=== PATIENT | male | born 1985 | race Caucasian/White ===

== ENCOUNTER 2023-07-19 19:59 | Emergency (ER) | payer BC ==
[2023-07-19] MEDS ORDERED: NA CHLORIDE 0.9% 1,000 ML ONE ×2 (20:44→21:19)
[2023-07-19] MEDS ORDERED: ONDANSETRON 4 MG/2 ML VIAL ONE (20:44)
[2023-07-19] MEDS ORDERED: KETOROLAC 30 MG/ML INJ ONE (20:44)
[2023-07-19] MEDS ORDERED: MORPHINE 4 MG/ML SYR ONE (20:44)
[2023-07-19] MEDS ORDERED: ETOMIDATE 20 MG/10 ML VIAL IV ONE (20:44)
[2023-07-19 21:13] LABS: Absolute Lymphocytes (CBC) 1.9 K/uL (0.7-4.9); Hematocrit 46.2 % (39.6-49.0); Lymphocytes % 22.9 % (15.3-44.8); MCV 85.3 fL (80-100); MPV 7.7 fL (7.6-11.3); Platelets 284 thou/uL (152-406); RBC Red Blood Cell Count 5.42 M/uL (4.33-5.43)
--- NOTE | 2023-07-19 22:17 | RAD REPORT ---
EXAM DESCRIPTION: RAD - Wrist Left 3 View - 07/19/2023 10:01 pm CLINICAL HISTORY: DEFORMITY Pain COMPARISON: No comparisons FINDINGS: Lunate dislocation is noted. Scaphoid dislocation is also likely present. Ulnar styloid a vulsion is noted.
--- NOTE | 2023-07-19 22:23 | RAD REPORT ---
EXAM DESCRIPTION: RAD - Forearm Left - 07/19/2023 10:01 pm CLINICAL HISTORY: wrist fracture COMPARISON: No comparisons FINDINGS: Ulnar styloid fracture is present. A lunate dislocation is present. There is also likely s caphoid dislocation. Full carpal bone assessment is limited.
--- NOTE | 2023-07-19 22:23 | RAD REPORT ---
EXAM DESCRIPTION: RAD - Hand Left 2 View - 07/19/2023 10:01 pm CLINICAL HISTORY: fracture Pain and swelling COMPARISON: No comparisons FINDINGS: Ulnar styloid fracture noted. Lunate dislocation is present. Scaphoid also appears disloca irene.
--- NOTE | 2023-07-20 01:12 | EDPHYS ---
Physician Documentation [facility] Name: Noah Durand Age: 37 yrs Sex: Male : 1985 Arrival Date: 07/19/2023 Time: 19:59 Bed 16 Private MD: ED Physician Juno Mao HPI: 07/19 20:03 This 37 yrs old Male presents to ER via Unassigned with complaints of Gen sp4 complaint . 22:11 Patient presents with acute left wrist injury after falling off the ladder while sp4 working on the ladder. Patient has acute deformity left wrist associated with moderate to severe pain and swelling. No additional injury reported. No medical problems reported. . Historical: - Allergies: 20:21 No Known Allergies; bp - Home Meds: 20:21 None [Active]; bp - PMHx: 20:21 None; bp - PSHx: 20:21 None; bp - Immunization history:: Adult Immunizations up to date. - Social history:: Smoking status: Patient denies any tobacco usage or history of. - Family history:: not pertinent. ROS: 22:11 Constitutional: Negative for fever, chills, and weight loss, MS/Extremity: Positive for sp4 left wrist deformity, positive for left wrist injury, positive for left wrist severe pain 22:11 All other systems are negative, Exam: 22:11 Constitutional: This is a well developed, well nourished patient who is awake, alert, sp4 and acutely uncomfortable Head/Face: Normocephalic, atraumatic. Eyes: Pupils equal round and reactive to light, extra-ocular motions intact. Lids and lashes normal. Conjunctiva and sclera are not injected. Cornea within normal limits. Periorbital areas with no swelling, redness, or edema. ENT: Nares patent. No nasal discharge, no septal abnormalities noted. Tympanic membranes are normal and external auditory canals are clear. Oropharynx with no redness, swelling, or masses, exudates, or evidence of obstruction, uvula midline. Mucous membranes moist. Neck: Trachea midline, no thyromegaly or masses palpated, and no cervical lymphadenopathy. Supple, full range of motion without nuchal rigidity, or vertebral point tenderness. Chest/axilla: Normal chest wall appearance and motion. Nontender with no deformity. No lesions are appreciated. Cardiovascular: Regular rate and rhythm with a normal S1 and S2. No gallops, murmurs, or rubs. Normal PMI, no JVD. No pulse deficits. Respiratory: Lungs have equal breath sounds bilaterally, clear to auscultation and percussion. No rales, rhonchi or wheezes noted. No increased work of breathing, no retractions or nasal flaring. Abdomen/GI: Soft, non-tender, with normal bowel sounds. No distension or tympany. No guarding or rebound. No evidence of tenderness throughout. Back: No spinal tenderness. No costovertebral tenderness. Skin: Warm, dry with normal turgor. Normal color with no rashes, no lesions, and no evidence of cellulitis. MS/ Extremity: Pulses equal, no cyanosis. Neurovascular intact. Positive left wrist deformity positive left wrist deviation positive left wrist tenderness positive left wrist swelling, intact peripheral pulse. Otherwise normal musculoskeletal exam Neuro: Awake and alert, GCS 15, oriented to person, place, time, and situation. Cranial nerves II-XII grossly intact. Motor strength 5/5 in all extremities. Sensory grossly intact. Psych: Awake, alert, with orientation to person, place and time. Behavior, mood, and affect are within normal limits 22:11 ECG was reviewed by the Attending Physician. That her EEG is normal sinus rhythm at the sp4 rate of 94, EKG time 2044. Vital Signs: 20:20 BP 138 / 95; Pulse 100; Resp 20; Temp 98.1; Pulse Ox 100% ; Weight 95.25 kg; Height 5 bp ft. 6 in. ; 22:45 BP 136 / 100; Pulse 105; Resp 21; Temp 97.9; Pulse Ox 100% ; bp 23:30 BP 144 / 98; Pulse 93; Resp 18; Pulse Ox 100% ; bp 20:20 Body Mass Index 33.89 (95.25 kg, 167.64 cm) bp Procedures: 07/20 06:57 Splinting: Splint applied to left elbow, left wrist and palmar aspect of left forearm sp4 using Orthoglass splint, Left arm sugar-tong splint. applied by myself. post reduction film - reveals improved alignment, Examined by me, post splint application: neurovascular intact, 2+ distal pulses palpable, brisk capillary refill noted, Patient tolerated well, Advised to wear the splint at all times until visit with orthopedist. Reduction: of the left wrist, using traction, manipulation, Manipulation, Immobilized with OCL splint, Patient tolerated well. Post reduction film - reveals improved alignment. Moderate sedation: Pre-procedure assessment: the patient has been NPO 4 hour(s) prior to arrival, ASA physical classification: I - healthy, no underlying organic disease, Airway assessment: able to hyperextend neck, able to maintain airway, can open mouth without difficulty, Mallampati classification of tongue size: III - uvula can be visualized, but faucial pillars and soft palate are not appreciated, Monitoring during procedure: monitor and storage bin tender, continuous pulse oximetry, nurse at bedside at all times, Medications employed: Etomidate, 40 mg(s), , Post-procedure assessment: the patient is moderately sedated, Respiratory status: requires supplemental oxygen to maintain acceptable oxygen saturation, a reversal agent was not used, Tolerated sedation without complications. Oxygen support used. Sedation was required for left wrist reduction. MDM: 07/19 20:04 Patient medically screened. sp4 07/20 00:15 ED course: X ray - EXAM DESCRIPTION: RAD - Wrist Left 3 View - 07/19/2023 10:01 pm sp4 CLINICAL HISTORY: DEFORMITY Pain COMPARISON: No comparisons FINDINGS: Lunate dislocation is noted. Scaphoid dislocation is also likely present. Ulnar styloid avulsion is noted. . ED course: Hand X ray - EXAM DESCRIPTION: RAD - Hand Left 2 View - 07/19/2023 10:01 pm CLINICAL HISTORY: fracture Pain and swelling COMPARISON: No comparisons FINDINGS: Ulnar styloid fracture noted. Lunate dislocation is present. Scaphoid also appears dislocated. . ED course: Forearm X ray - EXAM DESCRIPTION: RAD - Forearm Left - 07/19/2023 10:01 pm CLINICAL HISTORY: wrist fracture COMPARISON: No comparisons FINDINGS: Ulnar styloid fracture is present. A lunate dislocation is present. There is also likely scaphoid dislocation. Full carpal bone assessment is limited. . ED course: After Reduction - Wrist X ray - TECHNIQUE: 2 views COMPARISON(S): None. FINDINGS: Assessment is limited by lack of comparison exam, overlying splint material and suboptimal positioning. Evidence of a tiny cortical step-off at the central aspect of the radial articular surface seen only on frontal view. Nondisplaced ulnar styloid fracture. No dislocation. Increased 2nd metatarsophalangeal interval. IMPRESSION: 1. Suspected nondisplaced intra-articular left distal radius fracture. Mildly displaced ulnar styloid fracture. 2. Prominence of the 2nd MTP joint space may be related to traction for closed reduction.. 06:57 Differential Diagnosis Wrist fracture, wrist dislocation, left wrist fracture sp4 dislocation. Data reviewed: vital signs, nurses notes. Consideration of Admission/Observation Escalation of care including admission/observation considered. 07:01 ED course: Left lunate dislocation has properly reduced under sedation and traction.. sp4 Patient was discussed with orthopedist at [facility] who states that since proper reduction was accomplished in ER patient does not warrant emergent orthopedic management. Patient was referred to [facility] plastic surgery hand specialist. 07/19 20:15 Order name: Basic Metabolic Panel; Complete Time: 22:10 sp4 07/19 20:15 Order name: CBC with Diff; Complete Time: 22:10 sp4 07/19 21:14 Order name: XRAY Wrist LEFT 3 view; Complete Time: 23:14 ds4 07/19 21:40 Order name: Forearm Left XRAY; Complete Time: 23:14 sp4 07/19 21:40 Order name: Hand Left 2 View XRAY; Complete Time: 23:14 sp4 07/19 23:06 Order name: XRAY Wrist LEFT 2 view bp 07/19 20:15 Order name: EKG; Complete Time: 20:15 sp4 07/19 20:14 Order name: Moderate Sedation; Complete Time: 23:07 sp4 07/19 20:15 Order name: EKG - Nurse/Tech; Complete Time: 20:51 sp4 07/19 20:15 Order name: IV Saline Lock; Complete Time: 20:51 sp4 07/19 20:15 Order name: Labs collected and sent; Complete Time: 20:51 sp4 07/19 20:15 Order name: O2 Per Protocol; Complete Time: 20:22 sp4 07/19 20:15 Order name: O2 Sat Monitoring; Complete Time: 20:22 sp4 EC/25 22:11 Rate is 94 beats/min. Rhythm is regular, Normal Sinus Rhythm. QRS [place] is Normal. FL sp4 interval is normal. QRS interval is normal. QT interval is normal. No Q waves. T waves are Normal. No ST changes noted. Clinical impression: Normal ECG. Interpreted by me. Administered Medications: 21:06 Drug: Ketorolac IVP 30 mg IVP once Route: IVP; Site: right antecubital; bp 07/20 01:28 Follow up: Response: No adverse reaction bp 07/19 21:07 Drug: morphine IVP or IV 4 mg IVP once over 4 mins Route: IVP; Infused Over: 4 mins; bp Site: right antecubital; 07/20 01:28 Follow up: Response: No adverse reaction bp 07/19 21:07 Drug: Ondansetron IVP 8 mg IVP once; over 2 minutes Route: IVP; Site: right antecubital;bp 07/20 01:28 Follow up: Response: No adverse reaction bp 07/19 23:07 Drug: NS 0.9% IV 1000 ml IV at 1 bolus Per protocol; 1000 mL bolus Route: IV; Rate: 1 bp bolus; Site: right antecubital; 07/20 01:28 Follow up: IV Status: Completed infusion; IV Intake: 1000ml bp 07/19 23:09 Drug: Etomidate IVP 40 mg IVP once Route: IVP; Site: right antecubital; bp 07/20 01:28 Follow up: Response: No adverse reaction bp Disposition Summary: 07/20/23 01:12 Discharge Ordered Problem: new sp4 Symptoms: have improved sp4 Condition: Stable sp4 Diagnosis - Other specified sprain of left wrist sp4 - Left lunate dislocation, left ulnar styloid fracture, left wrist dislocation sp4 Followup: sp4 - With: Private Physician - When: 2 - 3 days - Reason: Recheck today's complaints Discharge Instructions: - Discharge Summary Sheet sp4 - Closed Reduction for Wrist or Forearm, Care After sp4 Forms: - Work release form bp - Patient Portal Instructions sp4 Prescriptions: - Ibuprofen 800 mg Oral Tablet - take 1 tablet ORAL route every 8 hours As needed take with food; 30 tablet; sp4 Refills: 0, Product Selection Permitted - Tramadol 50 mg Oral tablet - take 1 tablet ORAL route every 8 hours as needed; 20 tablet; Refills: 0, sp4 Product Selection Permitted Signatures: Dispatcher [employer] Damian Taylor, ALFONZO RN bp Juno Mao MD MD sp4
--- NOTE | 2023-07-20 01:12 | ER ---
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 Coronavirus screen: bp At this time, the client does not indicate any symptoms associated with coronavirus-19. Ebola Screen: No symptoms or risks identified at this time. Initial Sepsis Screen: Does the patient meet any 2 criteria? No. Patient's initial sepsis screen is negative. Does the patient have a suspected source of infection? No. Patient's initial sepsis screen is negative. Risk Assessment: Do you want to hurt yourself or someone else? Patient reports no desire to harm self or others. Onset of symptoms was July 19, 2023 at 19:00. 20:20 Method Of Arrival: Ambulatory bp 20:20 Acuity: STEPHAN 3 bp Triage Assessment: 20:21 General: Appears uncomfortable, Behavior is calm, cooperative, appropriate for age. bp Pain: Complains of pain in left wrist. Musculoskeletal: Bony deformity noted of left wrist. Injury Description: Deformity sustained to left wrist. Historical: - Allergies: 20:21 No Known Allergies; bp - Home Meds: 20:21 None [Active]; bp - PMHx: 20:21 None; bp - PSHx: 20:21 None; bp - Immunization history:: Adult Immunizations up to date. - Social history:: Smoking status: Patient denies any tobacco usage or history of. - Family history:: not pertinent. Screenin:45 [facility] ED Fall Risk Assessment (Adult) History of falling in the last 3 months, bp including since admission No falls in past 3 months (0 pts). Abuse screen: Denies threats or abuse. Denies injuries from another. Nutritional screening: No deficits noted. Tuberculosis screening: No symptoms or risk factors identified. Assessment: 22:45 Reassessment: PT CONSENTED FOR CLOSED REDUCTION OF LEFT WRIST WITH CONSCIOUS SEDATION. bp PT PLACED ON MONITOR WITH NIBP AND SPO2. PT AND FAMILY EXPRESSED UNDERSTANDING OF PROCEDURE AND MEDICATION. ERP, CRASH CART AND SUCTION AT B/S. 23:30 Reassessment: PROCEDURE COMPLETED, PT RETURNED TO BASELINE. VS REMAINED WITHIN 10% bp BASELINE, SHAY 10. PT AMBULATED TO RESTROOM WITHOUT DIFFICULTY. 07/20 01:26 Reassessment: PT CLEARED FOR D/C BY ORTHO C/S. TO F/U WITH [facility]. bp Vital Signs: 07/19 20:20 BP 138 / 95; Pulse 100; Resp 20; Temp 98.1; Pulse Ox 100% ; Weight 95.25 kg; Height 5 bp ft. 6 in. ; 22:45 BP 136 / 100; Pulse 105; Resp 21; Temp 97.9; Pulse Ox 100% ; bp 23:30 BP 144 / 98; Pulse 93; Resp 18; Pulse Ox 100% ; bp 20:20 Body Mass Index 33.89 (95.25 kg, 167.64 cm) bp ED Course: 20:02 Patient arrived in ED. gm2 20:03 Juno Mao MD is Attending Physician. sp4 20:20 Damian Lentz, RN is Primary Nurse. bp 20:21 Triage completed. bp 20:22 Arm band placed on. bp 20:51 Basic Metabolic Panel Sent. jr12 20:51 CBC with Diff Sent. jr12 20:54 Inserted saline lock: 22 gauge in right antecubital area, using aseptic technique. jr12 Blood collected. 22:03 XRAY Wrist LEFT 3 view In Process Unspecified. EDMS 22:03 Forearm Left XRAY In Process Unspecified. EDMS 22:03 Hand Left 2 View XRAY In Process Unspecified. EDMS 22:45 Patient has correct armband on for positive identification. Bed in low position. Call bp light in reach. Side rails up X2. Adult w/ patient. Provided Education on: N/A. 23:26 XRAY Wrist LEFT 2 view In Process Unspecified. EDMS 23:45 Assist provider with reduction of left wrist using manipulation, Set up for procedure. bp Performed by Juno Mao MD Immobilized with OCL splint, Patient tolerated well. 07/20 01:27 IV discontinued, intact, bleeding controlled, No redness/swelling at site. Pressure bp dressing applied. Administered Medications: 07/19 21:06 Drug: Ketorolac IVP 30 mg IVP once Route: IVP; Site: right antecubital; bp 07/20 01:28 Follow up: Response: No adverse reaction bp 07/19 21:07 Drug: morphine IVP or IV 4 mg IVP once over 4 mins Route: IVP; Infused Over: 4 mins; bp Site: right antecubital; 07/20 01:28 Follow up: Response: No adverse reaction bp 07/19 21:07 Drug: Ondansetron IVP 8 mg IVP once; over 2 minutes Route: IVP; Site: right antecubital;bp 07/20 01:28 Follow up: Response: No adverse reaction bp 07/19 23:07 Drug: NS 0.9% IV 1000 ml IV at 1 bolus Per protocol; 1000 mL bolus Route: IV; Rate: 1 bp bolus; Site: right antecubital; 07/20 01:28 Follow up: IV Status: Completed infusion; IV Intake: 1000ml bp 07/19 23:09 Drug: Etomidate IVP 40 mg IVP once Route: IVP; Site: right antecubital; bp 07/20 01:28 Follow up: Response: No adverse reaction bp Medication: 01:26 VIS not applicable for this client. bp Intake: 01:28 IV: 1000ml; Total: 1000ml. bp Outcome: 01:12 Discharge ordered by . [email or web address] 01:27 Discharged to home ambulatory, with family, bp 01:27 Condition: stable 01:27 Discharge instructions given to patient, family, Instructed on discharge instructions, follow up and referral plans. medication usage, Demonstrated understanding of instructions, follow-up care, medications, Prescriptions given X 2, 01:29 Patient left the ED. bp Signatures: Dispatcher [employer] EDDamian Plunkett, RN RN bp Juno Mao MD MD sp4 Jonathan, [facility] Tess Barcenas 2
[2023-07-20 01:53] VITALS: O2SAT 100
[2023-07-20 01:54] VITALS: TEMP 97.9
[2023-07-20 01:55] VITALS: BP 144/98
--- NOTE | 2023-07-21 13:49 | RAD REPORT ---
EXAM DESCRIPTION: RAD - Wrist Left 2 View - 07/19/2023 11:24 pm CLINICAL HISTORY: Male, 37 years old, SMASH INJURY TECHNIQUE: 2 views COMPARISON: None. FINDINGS: Assessment is limited by lack of comparison exam, overlying splint material and suboptimal positioning. Evidence of a tiny cortical step-off at the central aspect of the radial articular surface seen only on frontal view. Nondisplaced ulnar styloid fracture. No dislocation. Increased 2nd metatarsophalange al interval. IMPRESSION: 1. Suspected nondisplaced intra-articular left distal radius fracture. Mildly displace d ulnar styloid fracture. 2. Prominence of the 2nd MTP joint space may be related to traction for closed reduction. Electronically signed by: Marcial Denny MD 07/19/2023 11:35 PM [employer] Due to temporary technical issues with the PACS/Fluency reporting system, reports are being signed by the in house radiologist without review as a courtesy to ensure prompt reporting. The interpreting r adiologist is fully responsible for the content of the report.
--- NOTE | 2023-07-21 16:52 | EKG ---
Test Date: 2023-07-19 Test Time: 20:45:34 Supervisor [employer] Services: OSIEL MEASUREMENT RESULTS: Intervals: Rate: 94 MI: 184 QRSD: 88 QT: 330 QTc: 412 [place]: P: 60 MI: 184 QRS: 62 T: -9 INTERPRETIVE STATEMENTS: Normal sinus rhythm T wave abnormality, consider inferior ischemia Abnormal ECG No previous ECG available for comparison Electronically Signed On 07-21-23 16:51:43 NATUROPATH by Joshua Lino
== END 2023-07-20 01:29 | disposition home or self-care (01) ==
LOC: ER 19:59
PROC: 0PSL35Z Reposition Left Ulna with External Fixation Device, Percutaneous Approach (ICD-10-PCS; principal; 2023-07-20)
DX: S52.612A Displaced fracture of left ulna styloid process, initial encounter for closed fracture (principal); S63.592A Other specified sprain of left wrist, initial encounter
CPT/HCPCS: 96361; 93005; 85025; 80048; 36415; 73120; 73090; 73110; 73100; 96375; 96374; 99285; 25650; J2405; J7030 ×2